=== PATIENT | female | born 2000 | race Caucasian/White ===

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

== ENCOUNTER 2020-01-15 11:14 | Emergency (ER) | payer BC ==
[~2020-01-15] VITALS: Ht 177.8 cm; Wt 116.4 kg
[2020-01-15] MEDS ORDERED: IBUPROFEN 200 MG TABLET ONE (11:56)
[2020-01-15] MEDS ORDERED: DEXAMETHASONE 4 MG TABLET ONE (11:56)
[2020-01-15] MEDS ORDERED: DEXAMETHASONE 4 MG TABLET PO ONE (12:00)
[2020-01-15] MEDS ORDERED: IBUPROFEN 800 MG TABLET PO ONE (12:00)
[2020-01-15 12:23] VITALS: BP 122/64
== END 2020-01-15 12:28 ==
LOC: ED 12:22
DX: J02.9 Acute pharyngitis, unspecified (principal)
CPT/HCPCS: 87081; 87147; 87880; 99283

== ENCOUNTER 2020-05-11 14:10 | Emergency (ER) | payer BC, OTHER ==
[~2020-05-11] VITALS: Ht 177.8 cm; Wt 118.2 kg
[2020-05-11 14:16] VITALS: BP 131/77
== END 2020-05-11 16:05 | disposition home or self-care (01) ==
LOC: ED 15:58
DX: J02.9 Acute pharyngitis, unspecified (principal); R09.81 Nasal congestion; R05 Cough
CPT/HCPCS: 99283

== ENCOUNTER 2020-06-28 09:36 | Emergency (ER) | payer OTHER ==
[~2020-06-28] VITALS: Ht 177.8 cm; Wt 117.5 kg
[2020-06-28] MEDS ORDERED: DICYCLOMINE 20 MG TABLET ONE (10:10)
--- NOTE | 2020-06-28 10:18 | NUR ---
Assumed care of patient. C/O nausea. Denies pain at this time. Refusing bentyl. Lab at bedside. Will continue to monitor.
[2020-06-28] MEDS ORDERED: DICYCLOMINE 20 MG TABLET PO ONE (10:30)
[2020-06-28 10:40] LABS: BASOPHILS # (AUTO) 0.03 x10^3/uL (0-0.3); BASOPHILS % (AUTO) 0 % (0-1); EOSINOPHILS # (AUTO) 0.14 x10^3/uL (0-0.8); EOSINOPHILS % (AUTO) 2 % (1-7); LYMPHOCYTES # (AUTO) 2.25 x10^3/uL (1-6.1); LYMPHOCYTES % (AUTO) 27 % (22-44); MD NO; MEAN CORPUSCULAR HGB CONC 32.9 g/dL (32.4-35.8); MEAN CORPUSCULAR VOLUME 91.2 fL (80-100); MEAN PLATELET VOLUME 8.6 fL (7.4-10.4); MONOCYTES # (AUTO) 0.43 x10^3/uL (0-1.4); MONOCYTES % (AUTO) 5 % (2-9); NEUTROPHILS % (AUTO) 66 % (42-75); PLATELET COUNT 274 x10^3/uL (130-400); RED BLOOD COUNT 4.73 x10^6/uL (3.82-5.3); RED CELL DISTRIBUTION WIDTH 13.5 % (9.6-15.2)
[2020-06-28] MEDS ORDERED: ONDANSETRON ODT 4 MG ONE (10:43)
[2020-06-28 10:53] LABS: ALBUMIN 3.6 g/dL (3.4-5.0); ANION GAP 6 mmol/L (5-15); CALCIUM 9.2 mg/dL (8.5-10.1); CHLORIDE 112 mmol/L (98-107)
[2020-06-28 11:00] LABS: ALANINE AMINOTRANSFERASE 20 U/L (12-78); ALKALINE PHOSPHATASE 79 U/L (45-117); BILIRUBIN,TOTAL 0.2 mg/dL (0.2-1.0); CREATININE 0.77 mg/dL (0.55-1.02); TOTAL PROTEIN 7.8 g/dL (6.4-8.2)
[2020-06-28] MEDS ORDERED: ONDANSETRON ODT 8 MG PO ONE (11:00)
[2020-06-28 11:15] VITALS: BP 121/78
[2020-06-28 11:19] LABS: MICROSCOPIC NOT IND
--- NOTE | 2020-06-28 11:41 | NUR ---
Patient/Caregiver given discharge instructions and they have confirmed that they understand the instructions. Patient ambulatory with steady gait.
== END 2020-06-28 11:42 | disposition home or self-care (01) ==
LOC: ED 10:12
DX: R10.13 Epigastric pain (principal); R10.30 Lower abdominal pain, unspecified; E66.9 Obesity, unspecified; Z90.49 Acquired absence of other specified parts of digestive tract
CPT/HCPCS: 36415; 76700; 80053; 81003; 83690; 84703; 85025; 99284; Q0162